=== PATIENT | female | born 1950 | race African-American/Black ===

== ENCOUNTER 2017-03-06 07:10 | Day surgery (SDC) | payer BC ==
[2017-02-28 16:48] VITALS: BMI 30.4
[2017-03-06] MEDS ORDERED: FLURBIPROFEN 0.03% OPHTH SOLN 2.5 ML BOTTLE OS SCH (08:00)
[2017-03-06] MEDS ORDERED: CYCLOPENTOLATE HCL 1% OPHTH SOLN 2 ML BOTTLE ONE (08:07)
[2017-03-06] MEDS ORDERED: TROPICAMIDE 1% OPHTH SOLN 15 ML BOTTLE ONE (08:08)
[2017-03-06] MEDS ORDERED: PHENYLEPHRINE 2.5% OPHTH SOLN 15 ML BOTTLE ONE (08:08)
[2017-03-06] MEDS ORDERED: GENTAMICIN SULFATE 0.3% OPHTHALMIC (EYE DROPS) 5ML BOTTLE ONE (08:08)
[2017-03-06] MEDS: PHENYLEPHRINE 2.5% OPHTH SOLN 15 ML BOTTLE OS SCH ×5 (08:30→08:50)
[2017-03-06] MEDS: GENTAMICIN SULFATE 0.3% OPHTHALMIC (EYE DROPS) 5ML BOTTLE OS SCH ×5 (08:30→08:50)
[2017-03-06] MEDS: CYCLOPENTOLATE HCL 1% OPHTH SOLN 2 ML BOTTLE OS SCH ×5 (08:30→08:50)
[2017-03-06] MEDS: TROPICAMIDE 1% OPHTH SOLN 15 ML BOTTLE OS SCH ×5 (08:30→08:50)
[2017-03-06] MEDS ORDERED: MIDAZOLAM HCL 2 MG/2 ML SINGLE DOSE VIAL ONE (09:48)
[2017-03-06] MEDS ORDERED: CARBACHOL 0.01% INTRA-OCULAR 1.5 ML VIAL ONE (10:51)
[2017-03-06] MEDS ORDERED: oxyCODONE HCL 5 MG TABLET PO PRN (11:00)
[2017-03-06] MEDS ORDERED: LACTATED RINGERS SOLUTION 1,000 ML IV SCH (11:00)
[2017-03-06] MEDS ORDERED: ONDANSETRON 4 MG/2 ML VIAL IVPUSH PRN (11:00)
[2017-03-06] MEDS ORDERED: ACETAMINOPHEN 325 MG TABLET (FP) PO PRN (11:35)
[2017-03-06 12:32] VITALS: BP 132/75; PULSE 61; TEMP 98.4
--- NOTE | 2017-03-07 11:34 | OP ---
DATE OF OPERATION: 03/06/2017 PREOPERATIVE DIAGNOSIS: Cataract, left eye. POSTOPERATIVE DIAGNOSIS: Cataract, left eye. PROCEDURE: Cataract extraction via phacoemulsification with insertion of posterior chamber lens implant, left eye. SURGEON: Alexandro Brower MD CODING TECHNICIAN: Irene English MD ANESTHESIA: Regional with sedation. COMPLICATIONS: None. SPECIMENS: None. ESTIMATED BLOOD LOSS: Less than 1 mL. DESCRIPTION OF PROCEDURE: The patient was identified in the holding area. After all risks, benefits, and alternatives were explained to the patient, informed consent was obtained. The left eye was marked with a marking pen. The patient then entered the operating room on an eye stretcher. After a formal time-out was performed, a 3-mL injection of equal parts 2% lidocaine with epinephrine and 0.5% Marcaine was given around the left eye. The left eye was then prepped and draped in the usual sterile fashion. A eyelid speculum was placed beneath the eyelids of the left eye. An inferotemporal incision was created using a 15-degree blade. Viscoelastic was injected into the anterior chamber. A 2.4-mm keratome blade was then used to make a superotemporal incision. A 360-degree continuous curvilinear capsulorrhexis was then created using bent cystotome and Utrata forceps. Hydrodissection was performed with balanced saline solution on a cannula. Phacoemulsification was introduced to disassemble and remove the nucleus in its entirety. Irrigation/aspiration was then used to remove any remaining cortical material from the eye. The capsular bag was then refilled using viscoelastic. An Yamil model SN60WF with a power of 22.5 diopters, serial number [id number] was inspected and found to be defect-free and injected into the capsular bag. Irrigation/aspiration was then used to remove any remaining viscoelastic from the eye. The anterior chamber was then reformed using balanced saline solution. Intracameral injections of Miochol and Miostat were then administered to the left eye. All wounds were hydrated with balanced saline solution and noted to be watertight. Upon inspection, the pupil was round and normal-sized. The lens was perfectly centered in the capsular bag. The anterior chamber was deep. The eye had an adequate pressure. Topical antibiotic eye drops and ointment were then administered to the left eye. The eyelid speculum was removed from the left eye. The left eye was patched and shielded. The patient tolerated the procedure well, left the operating room in stable condition to follow up in the eye clinic tomorrow morning at 9:00. ALEXANDRO BROWER M.D. [id number]
== END 2017-03-06 12:25 | disposition home or self-care (01) ==
LOC: FASU 07:10
PROVIDERS: ATTEND Ophthalmology
PROC: 08RK3JZ Replacement of Left Lens with Synthetic Substitute, Percutaneous Approach (ICD-10-PCS; principal; 2017-03-06 11:01)
DX: H26.9 Unspecified cataract (principal)